=== PATIENT | male | born 1930 | race Caucasian/White ===

== ENCOUNTER 2016-08-24 12:27 | Inpatient (IN) | payer MEDICARE, BC ==
[~2016-08-24] VITALS: Ht 170.2 cm; Wt 67.2 kg
[2016-08-24 13:37] VITALS: BP 139/76
[2016-08-24 13:56] VITALS: BP 175/73
[2016-08-24] MEDS: SODIUM CHLORIDE 0.9% 1,000 ML IV SCH (14:02)
[2016-08-24] MEDS ORDERED: METO50TA11 PO (14:19)
[2016-08-24] MEDS ORDERED: ALLO300T PO (14:19)
[2016-08-24] MEDS ORDERED: DABI150C PO (14:19)
[2016-08-24] MEDS ORDERED: ATOR80TA75 PO (14:19)
[2016-08-24] MEDS ORDERED: LOSA50TA6 PO (14:19)
[2016-08-24] MEDS ORDERED: FURO40TA6 PO (14:19)
[2016-08-24] MEDS ORDERED: POTA10TA11 PO (14:19)
[2016-08-24] MEDS ORDERED: DIGO250T86 PO (14:19)
[2016-08-24] MEDS ORDERED: ONDANSETRON 2MG/ML, 2ML IVPush PRN (14:30)
[2016-08-24] MEDS ORDERED: LABETALOL 5MG/ML, 20ML IVPush PRN (14:30)
[2016-08-24] MEDS ORDERED: POLYETHYLENE GLYCOL 17 GM PACKET PO PRN (14:30)
[2016-08-24] MEDS ORDERED: hydrALAzine 20 MG/ML, 1ML IVPush PRN (14:30)
[2016-08-24] MEDS: ACETAMINOPHEN 325 MG TABLET PO PRN (23:30)
[2016-08-25 04:00] VITALS: BP 132/72
[2016-08-25 04:46] LABS: BLOOD UREA NITROGEN 17 mg/dL (7-18)
[2016-08-25 04:49] LABS: ASPARTATE AMINO TRANSFERASE 24 U/L (15-37)
[2016-08-25] MEDS: SODIUM CHLORIDE 0.9% 1,000 ML IV SCH (05:18)
[2016-08-25] MEDS: ACETAMINOPHEN 325 MG TABLET PO PRN ×3 (07:49→23:56)
[2016-08-25] MEDS ORDERED: CYANOCOBALAMIN 1,000 MCG/ML, 1ML IM ONE (09:30)
[2016-08-25] MEDS: SENNA/DOCUSATE TABLET PO SCH (09:59)
[2016-08-25] MEDS: METOPROLOL SUCCINATE 50 MG TAB.ER.24H PO SCH (10:30)
[2016-08-25] MEDS: ALLOPURINOL 300 MG TABLET PO SCH (10:30)
[2016-08-25] MEDS ORDERED: OMNIPAQUE 350 MG/ML, 100ML BOTTLE ONE (16:09)
[2016-08-25] MEDS: DIGOXIN 0.25 MG TABLET PO SCH (21:00)
[2016-08-25] MEDS: LOSARTAN 50MG TABLET PO SCH (21:00)
[2016-08-25] MEDS: ATORVASTATIN 80 MG TABLET PO SCH (21:00)
[2016-08-26 06:00] VITALS: BP 131/73
[2016-08-26] MEDS: SENNA/DOCUSATE TABLET PO SCH (08:42)
[2016-08-26] MEDS: METOPROLOL SUCCINATE 50 MG TAB.ER.24H PO SCH (08:42)
[2016-08-26] MEDS: ALLOPURINOL 300 MG TABLET PO SCH (08:42)
[2016-08-26] MEDS: CYANOCOBALAMIN 1,000 MCG TABLET PO SCH (08:42)
[2016-08-26] MEDS: ACETAMINOPHEN 325 MG TABLET PO PRN (13:40)
[2016-08-26] MEDS: LOSARTAN 50MG TABLET PO SCH (20:57)
[2016-08-26] MEDS: DIGOXIN 0.25 MG TABLET PO SCH (20:57)
[2016-08-26] MEDS: ATORVASTATIN 80 MG TABLET PO SCH (20:57)
[2016-08-27] MEDS: ACETAMINOPHEN 325 MG TABLET PO PRN (03:54)
[2016-08-27 04:43] LABS: BLOOD UREA NITROGEN 14 mg/dL (7-18)
[2016-08-27 06:00] VITALS: BP 140/77
[2016-08-27] MEDS: ALLOPURINOL 300 MG TABLET PO SCH (07:59)
[2016-08-27] MEDS: METOPROLOL SUCCINATE 50 MG TAB.ER.24H PO SCH (07:59)
[2016-08-27] MEDS: CYANOCOBALAMIN 1,000 MCG TABLET PO SCH (07:59)
[2016-08-27] MEDS: SENNA/DOCUSATE TABLET PO SCH (08:00)
[2016-08-27] MEDS ORDERED: THROMBIN 20,000 UNIT VIAL TP ONE (14:52)
[2016-08-27] MEDS ORDERED: BUPIVACAINE/PF-EPI 0.25% 1:200K ONE (14:52)
[2016-08-27] MEDS ORDERED: BACITRACIN 50,000 UNIT ONE (14:52)
[2016-08-27] MEDS ORDERED: FENTANYL PF 250 MCG/5ML ONE (17:12)
[2016-08-27] MEDS ORDERED: CEFUROXIME 1.5 GM ONE (17:12)
[2016-08-27] MEDS ORDERED: NEOSTIGMINE 1 MG/ML, 10ML ONE (17:16)
[2016-08-27] MEDS ORDERED: PROPOFOL 10 MG/ML, 20ML ONE (17:16)
[2016-08-27] MEDS ORDERED: SUCCINYLCHOLINE 20 MG/ML, 10ML ONE (17:16)
[2016-08-27] MEDS ORDERED: ONDANSETRON 2MG/ML, 2ML ONE (17:16)
[2016-08-27] MEDS ORDERED: ROCURONIUM 10 MG/ML ONE (17:16)
[2016-08-27] MEDS ORDERED: LEVETIRACETAM 1,000 MG in SODIUM CHLORIDE 0.9% 100 ML IV ONE (17:30)
[2016-08-27] MEDS ORDERED: morphine SULFATE 10 MG/ML, 1ML IV PRN (18:00)
[2016-08-27] MEDS ORDERED: METOCLOPRAMIDE 5 MG/ML, 2ML IV PRN (18:00)
[2016-08-27] MEDS ORDERED: FENTANYL PF 100 MCG/2ML IV PRN (18:00)
[2016-08-27] MEDS ORDERED: LABETALOL 5MG/ML, 20ML IV PRN (18:00)
[2016-08-27] MEDS ORDERED: hydrALAzine 20 MG/ML, 1ML IV PRN (18:00)
[2016-08-27] MEDS ORDERED: OXYcodone 5 MG/5 ML ORAL.SOL UDC PO PRN (18:00)
[2016-08-27] MEDS ORDERED: ONDANSETRON 2MG/ML, 2ML IVPush PRN (18:00)
[2016-08-27] MEDS ORDERED: NEOSPORIN OINT, 15GM ONE (18:34)
[2016-08-27] MEDS ORDERED: ACETAMINOPHEN 650 MG SUPP PR PRN (19:30)
[2016-08-27] MEDS ORDERED: BISACODYL 10 MG SUPP PR PRN (19:30)
[2016-08-27] MEDS ORDERED: ONDANSETRON 2MG/ML, 2ML IV PRN (19:30)
[2016-08-27] MEDS ORDERED: MAGNESIUM HYDROXIDE 8%, 30ML UDC PO PRN (19:30)
[2016-08-27] MEDS: CEFAZOLIN PMX 1GM/50ML 50 ML IVPB SCH (19:50)
[2016-08-27] MEDS: POTASSIUM CHLORIDE 40 MEQ in SODIUM CHLORIDE 0.9% 1,000 ML IV SCH (19:50)
[2016-08-27] MEDS: LEVETIRACETAM 500 MG TABLET PO SCH (21:00)
[2016-08-27] MEDS: LOSARTAN 50MG TABLET PO SCH (22:05)
[2016-08-27] MEDS: ATORVASTATIN 80 MG TABLET PO SCH (22:05)
[2016-08-27] MEDS: DIGOXIN 0.25 MG TABLET PO SCH (22:05)
[2016-08-27] MEDS: HYDROcodone/APAP 5/325 TABLET PO PRN (22:20)
[2016-08-27] MEDS: HYDROmorphone 2 MG/ML, 1ML IV PRN (23:52)
[2016-08-28] MEDS: CEFAZOLIN PMX 1GM/50ML 50 ML IVPB SCH ×3 (03:22→19:30)
[2016-08-28 04:00] VITALS: BP 131/64
[2016-08-28] MEDS: SENNA/DOCUSATE TABLET PO SCH ×2 (08:45→09:11)
[2016-08-28] MEDS: ALLOPURINOL 300 MG TABLET PO SCH (09:10)
[2016-08-28] MEDS: METOPROLOL SUCCINATE 50 MG TAB.ER.24H PO SCH (09:11)
[2016-08-28] MEDS: LEVETIRACETAM 500 MG TABLET PO SCH ×2 (09:11→20:55)
[2016-08-28] MEDS: CYANOCOBALAMIN 1,000 MCG TABLET PO SCH (09:11)
[2016-08-28] MEDS: POTASSIUM CHLORIDE 40 MEQ in SODIUM CHLORIDE 0.9% 1,000 ML IV SCH (10:56)
[2016-08-28] MEDS: HYDROcodone/APAP 5/325 TABLET PO PRN (19:30)
[2016-08-28] MEDS: ATORVASTATIN 80 MG TABLET PO SCH (20:54)
[2016-08-28] MEDS: LOSARTAN 50MG TABLET PO SCH (20:55)
[2016-08-28] MEDS: DIGOXIN 0.25 MG TABLET PO SCH (20:55)
[2016-08-29] MEDS: POTASSIUM CHLORIDE 40 MEQ in SODIUM CHLORIDE 0.9% 1,000 ML IV SCH (02:07)
[2016-08-29 04:31] LABS: BLOOD UREA NITROGEN 18 mg/dL (7-18)
[2016-08-29] MEDS: CEFAZOLIN PMX 1GM/50ML 50 ML IVPB SCH ×2 (04:41→13:04)
[2016-08-29] MEDS: SENNA/DOCUSATE TABLET PO SCH ×2 (09:00→09:09)
[2016-08-29] MEDS: CYANOCOBALAMIN 1,000 MCG TABLET PO SCH (09:08)
[2016-08-29] MEDS: ALLOPURINOL 300 MG TABLET PO SCH (09:08)
[2016-08-29] MEDS: METOPROLOL SUCCINATE 50 MG TAB.ER.24H PO SCH (09:09)
[2016-08-29] MEDS: LEVETIRACETAM 500 MG TABLET PO SCH ×2 (09:09→21:21)
[2016-08-29 12:41] VITALS: BP 143/79
[2016-08-29] MEDS: HYDROcodone/APAP 5/325 TABLET PO PRN (13:10)
[2016-08-29] MEDS: HYDROmorphone 2 MG/ML, 1ML IV PRN (16:28)
[2016-08-29 17:12] VITALS: BP 157/77
[2016-08-29 18:55] VITALS: BP 156/76
[2016-08-29] MEDS: LOSARTAN 50MG TABLET PO SCH (21:21)
[2016-08-29] MEDS: ATORVASTATIN 80 MG TABLET PO SCH (21:21)
[2016-08-29] MEDS: DIGOXIN 0.25 MG TABLET PO SCH (21:22)
[2016-08-29 21:25] VITALS: BP 161/84
[2016-08-30 01:42] VITALS: BP 128/64
[2016-08-30 04:11] VITALS: BP 159/78
[2016-08-30 05:38] LABS: BLOOD UREA NITROGEN 13 mg/dL (7-18)
[2016-08-30] MEDS: HYDROcodone/APAP 5/325 TABLET PO PRN (05:56)
[2016-08-30 06:41] LABS: ANISOCYTOSIS 1+; LARGE PLATELETS 1+
[2016-08-30 07:06] VITALS: BP 163/82
[2016-08-30] MEDS ORDERED: APAP/CODEINE 300/30MG TABLET PO PRN (07:30)
[2016-08-30] MEDS: DEXAMETHASONE 4 MG/ML, 1ML IVPush SCH ×3 (08:55→20:46)
[2016-08-30] MEDS: FAMOTIDINE 20 MG TABLET PO SCH ×2 (08:55→20:09)
[2016-08-30] MEDS: ALLOPURINOL 300 MG TABLET PO SCH (08:55)
[2016-08-30] MEDS: LEVETIRACETAM 500 MG TABLET PO SCH ×2 (08:55→20:09)
[2016-08-30] MEDS: SENNA/DOCUSATE TABLET PO SCH (08:55)
[2016-08-30] MEDS: CYANOCOBALAMIN 1,000 MCG TABLET PO SCH (08:56)
[2016-08-30] MEDS: METOPROLOL SUCCINATE 50 MG TAB.ER.24H PO SCH (08:56)
[2016-08-30] MEDS: ACETAMINOPHEN 325 MG TABLET PO PRN (10:43)
[2016-08-30 14:30] VITALS: BP 157/96
[2016-08-30 19:12] VITALS: BP 165/80
[2016-08-30] MEDS: DIGOXIN 0.25 MG TABLET PO SCH (20:09)
[2016-08-30] MEDS: LOSARTAN 50MG TABLET PO SCH (20:09)
[2016-08-30] MEDS: ATORVASTATIN 80 MG TABLET PO SCH (20:09)
[2016-08-30 20:13] VITALS: BP 166/84
[2016-08-30] MEDS: FUROSEMIDE 20 MG TABLET PO SCH (20:45)
[2016-08-31] MEDS: DEXAMETHASONE 4 MG/ML, 1ML IV SCH ×2 (02:10→09:16)
[2016-08-31 06:11] LABS: BLOOD UREA NITROGEN 12 mg/dL (7-18)
[2016-08-31 07:05] VITALS: BP 146/78
[2016-08-31] MEDS: LEVETIRACETAM 500 MG TABLET PO SCH (09:16)
[2016-08-31] MEDS: FUROSEMIDE 20 MG TABLET PO SCH (09:16)
[2016-08-31] MEDS: FAMOTIDINE 20 MG TABLET PO SCH (09:17)
[2016-08-31] MEDS: LOSARTAN 50MG TABLET PO SCH (09:17)
[2016-08-31] MEDS: ALLOPURINOL 300 MG TABLET PO SCH (09:17)
[2016-08-31] MEDS: SENNA/DOCUSATE TABLET PO SCH (09:17)
[2016-08-31] MEDS: CYANOCOBALAMIN 1,000 MCG TABLET PO SCH (09:18)
[2016-08-31] MEDS: METOPROLOL SUCCINATE 50 MG TAB.ER.24H PO SCH (09:18)
[2016-08-31 13:24] VITALS: BP 136/81
[2016-08-31] MEDS ORDERED: HYDR-3240 PO (14:43)
[2016-08-31] MEDS ORDERED: LEVE500T53 PO (14:43)
[2016-08-31] MEDS ORDERED: DEXA4TAB PO (14:43)
[2016-08-31] MEDS ORDERED: BISA10SU65 PR (14:43)
[2016-08-31] MEDS ORDERED: SENN1TAB7 PO (14:43)
[2016-08-31] MEDS ORDERED: CYAN10005 PO (14:43)
[2016-08-31] MEDS ORDERED: FAMO20TA7 PO (14:43)
[2016-08-31] MEDS ORDERED: LOSA50TA2 PO (14:43)
[2016-08-31] MEDS ORDERED: POLY17PO5 PO (14:43)
[2016-08-31] MEDS ORDERED: ACET325T14 PO (14:43)
[2016-08-31] MEDS ORDERED: PNEUMOCOCCAL 23 VACCINE IM-VACC ONE (16:30)
== END 2016-08-31 17:12 | DRG 23 ==
LOC: CCU 12:48 → 4EST 08-29 12:12
PROVIDERS: ADMIT Internal Medicine; ATTEND Internal Medicine
PROC: 00C40ZZ Extirpation of Matter from Intracranial Subdural Space, Open Approach (ICD-10-PCS; principal; 2016-08-27 17:00)
DX: I62.9 Nontraumatic intracranial hemorrhage, unspecified (principal); G93.5 Compression of brain; D68.69 Other thrombophilia; I42.0 Dilated cardiomyopathy; R74.8 Abnormal levels of other serum enzymes; D75.89 Other specified diseases of blood and blood-forming organs; D69.6 Thrombocytopenia, unspecified; I48.91 Unspecified atrial fibrillation; I10 Essential (primary) hypertension; E78.5 Hyperlipidemia, unspecified; M10.9 Gout, unspecified; E53.8 Deficiency of other specified B group vitamins; I65.21 Occlusion and stenosis of right carotid artery; Z66 Do not resuscitate; Z79.01 Long term (current) use of anticoagulants; Z82.49 Family history of ischemic heart disease and other diseases of the circulatory system; Z85.828 Personal history of other malignant neoplasm of skin; Z95.0 Presence of cardiac pacemaker
CPT/HCPCS: 36415; 70450; 70496; 70498; 80048; 80053; 82607; 82746; 83735; 84443; 85025; 85610; 85730; 87081; 90732; 93306; C1713; J0690; J0697; J1100; J1170; J2405; J2704; J2710; J3010; J3480; Q9967; C1781; J0330; J3420; J7030